=== PATIENT | female | born 1985 | race Two or more races ===

== ENCOUNTER 2019-03-13 23:53 | Emergency (ER) | payer SELFPAY ==
[~2019-03-13] VITALS: Ht 157.5 cm; Wt 49.9 kg
[2019-03-14 00:08] VITALS: BP 106/77
[2019-03-14] MEDS ORDERED: IBUPROFEN 400 MG TABLET ONE (00:54)
[2019-03-14] MEDS ORDERED: CYCLOBENZAPRINE 10 MG TABLET ONE (00:54)
[2019-03-14] MEDS ORDERED: CYCLOBENZAPRINE 10 MG TABLET PO ONE (01:00)
[2019-03-14] MEDS ORDERED: IBUPROFEN 400 MG TABLET PO ONE (01:00)
== END 2019-03-14 01:36 | disposition home or self-care (01) ==
LOC: ER 23:59
DX: M62.830 Muscle spasm of back (principal); M54.41 Lumbago with sciatica, right side